=== PATIENT | male | born 1970 | race African-American/Black ===

== ENCOUNTER 2017-01-27 19:39 | Emergency (ER) | payer OTHER ==
[~2017-01-27] VITALS: Ht 183.5 cm; Wt 86.2 kg
[~2017-01-27 19:39] MED LIST: EFFEXOR XR75 MG ORAL; ISENTRESS400 MG ORAL; KLONOPIN1 MG ORAL; NEURONTIN400 MG ORAL; RISPERIDONE2 MG ORAL; SELZENTRY150 MG ORAL; SEROQUEL25 MG ORAL; TRUVADA 200 MG1 EAC1 ORAL; VENLAFAXINE HCL25 MG ORAL
[2017-01-27] MEDS ORDERED: SOMA350 MG PO (19:53)
[2017-01-27] MEDS ORDERED: XANAX1 MG ORAL (19:53)
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
[2017-01-27 20:28] VITALS: BP 164/108
[2017-01-27 20:31] LABS: APPEARANCE,URINE CLEAR; KETONES,URINE NEGATIVE (NEGATIVE); LEUKOCYTE ESTERASE ,URINE NEGATIVE (NEGATIVE); NITRITE,URINE NEGATIVE (NEGATIVE); PH,URINE 6 (4.5-8.0); PROTEIN,URINE 2+ (NEGATIVE); UROBILINOGEN,URINE NORMAL MG/DL (0.0-1.0)
[2017-01-27 20:39] LABS: RBC,URINE 0-2 /HPF (0 - 0); WBC,URINE 0-2 /HPF (0 - 0)
[2017-01-27 20:40] LABS: MUCUS,URINE MODERATE /LPF (NONE/OCC)
[2017-01-27 21:04] LABS: BASOPHILS % (AUTO) 0.9 % (0.0-2.0); EOSINOPHILS % (AUTO) 0.2 % (0.0-3.0); LYMPHOCYTES % (AUTO) 12.6 % (20.0-45.0); MEAN CORPUSCULAR HEMOGLOBIN 35.8 PG (27.0-31.0); MEAN CORPUSCULAR HGB CONC 34.5 G/DL (32.0-36.0); MEAN CORPUSCULAR VOLUME 104 FL (80-99); MEAN PLATELET VOLUME 5.5 FL (6.5-10.1); MONOCYTES % (AUTO) 10.6 % (1.0-10.0); NEUTROPHILS % (AUTO) 75.8 % (45.0-75.0); PLATELET COUNT 384 K/UL (150-450); RED BLOOD COUNT 4.97 M/UL (4.70-6.10); RED CELL DISTRIBUTION WIDTH 12.3 % (11.6-14.8); WHITE BLOOD COUNT 13.3 K/UL (4.8-10.8)
[2017-01-27 21:21] LABS: ACETAMINOPHEN < 10 ug/mL (10-30); ALANINE AMINOTRANSFERASE 32 U/L (3-41); ALBUMIN/GLOBULIN RATIO 1.5 (1.0-2.7); ALCOHOL < 10 mg/dL; ANION GAP 18 (5-15); ASPARTATE AMINO TRANSFERASE 64 U/L (5-40); CALCIUM 10.9 mg/dL (8.6-10.2); CARBON DIOXIDE 28 mEQ/L (20-30); CHLORIDE 99 mEQ/L (98-107); CREATININE 1.2 mg/dL (0.7-1.2); GLOMERULAR FILTRATION RATE > 60 mL/min (>60); HEMOLYSIS 42; POTASSIUM 3.8 mEQ/L (3.4-4.9); SODIUM 145 mEQ/L (135-145); TOTAL PROTEIN 9.2 g/dL (6.6-8.7)
[2017-01-27 21:37] LABS: BILIRUBIN,DIRECT 0.2 mg/dL (0.1-0.3)
[2017-01-28] VITALS: BP 145/98
[2017-01-28 05:57] VITALS: BP 144/92
[2017-01-28 08:56] VITALS: BP 157/91
[2017-01-28 09:58] VITALS: BP 157/91
== END 2017-01-28 10:02 ==
LOC: EMR 19:51
DX: F15.10 Other stimulant abuse, uncomplicated (principal); R45.851 Suicidal ideations; F20.9 Schizophrenia, unspecified; F41.9 Anxiety disorder, unspecified; Z88.1 Allergy status to other antibiotic agents; B20 Human immunodeficiency virus [HIV] disease
CPT/HCPCS: 36415; 80053; 80300; 80329; 81003; 82248; 85025; 99285